=== PATIENT | male | born 1965 | race Caucasian/White ===

== ENCOUNTER 2021-04-06 16:26 | Outpatient (NON) | payer MEDICARE, SELFPAY ==
[2021-04-06 16:49] LABS: Hematocrit 36.4 % (40.0-54.0); Hemoglobin 11.2 g/dL (14.0-18.0); Mean Corpuscular HGB Conc 30.8 g/dL (32.0-36.0); Mean Corpuscular Hemoglobin 31.4 pg (27.0-31.0); Mean Platelet Volume 13.2 fl (8.7-11.0); Platelet Count Result 172 K/mm3 (150-420); Red Blood Count 3.57 M/mm3 (4.70-6.10); Red Cell Distribution Width 17.1 % (11.6-14.4)
[2021-04-06 17:01] LABS: Alanine Aminotransferase 30 U/L (16-63); Albumin Level 3.9 g/dL (3.4-5.0); Alkaline Phosphatase 123 U/L (46-116); Anion Gap 6 mmol/L (8-16); Aspartate Amino Transferase 24 U/L (15-37); Bilirubin,Total 0.3 mg/dL (0.00-1.00); Blood Urea Nitrogen 10 mg/dL (7-18); Carbon Dioxide 33 mmol/L (21-32); Chloride 103 mmol/L (98-108); Creatine Kinase 57 U/L (39-308); Estimated Glomerular Filt Rate 51; Glucose 72 mg/dL (70-99); Osmolality Calculated 292 mOsm/kg (285-295); Potassium 3.8 mmol/L (3.5-5.1); Sodium 142 mmol/L (136-145); Total Protein 7.6 g/dL (6.4-8.2)
[2021-04-06 17:02] LABS: White Blood Count 142.9 K/mm3 (4.8-10.8)
[2021-04-06 17:17] LABS: Band Neutrophils Percent 0 % (0-6); Eosinophils Absolute Manual 1.42 K/mm3 (0.02-0.5); Eosinophils Percent Manual 1 % (1-6); Lymphocytes Absolute Manual 105.74 K/mm3 (1.1-4.5); Lymphocytes Percent Manual 74 % (18-44); Monocytes Absolute Manual 18.57 K/mm3 (0.1-0.90); Monocytes Percent Manual 13 % (3-9); Neutrophils Absolute Manual 17.14 K/mm3 (1.3-6.7); Neutrophils Percent Manual 12 % (46-73); Platelet Estimate Adequate (Adequate); Total Cells Counted 100
[2021-04-06 17:23] LABS: Calcium 8.5 mg/dL (8.5-10.1)
[2021-04-06 17:29] LABS: CRP < 0.5 mg/dL (0.0-0.9)
== END 2021-04-06 16:27 | disposition home or self-care (01) ==
LOC: CHSLAB 16:29
PROVIDERS: Visit Provider Internal Medicine
DX: M86.172 Other acute osteomyelitis, left ankle and foot (principal)
CPT/HCPCS: 36415; 80053; 82550; 85025; 85060; 86140

== ENCOUNTER 2021-04-16 15:07 | Outpatient (NON) | payer MEDICARE, SELFPAY ==
[2021-04-16 16:17] LABS: Hematocrit 34.8 % (40.0-54.0); Hemoglobin 11.2 g/dL (14.0-18.0); Mean Corpuscular HGB Conc 32.2 g/dL (32.0-36.0); Mean Corpuscular Hemoglobin 31.6 pg (27.0-31.0); Mean Corpuscular Volume 98.3 fL (78.0-102.0); Mean Platelet Volume 13.1 fl (8.7-11.0); Platelet Count Result 176 K/mm3 (150-420); Red Blood Count 3.54 M/mm3 (4.70-6.10); Red Cell Distribution Width 17.7 % (11.6-14.4)
[2021-04-16 16:50] LABS: Alanine Aminotransferase 35 U/L (16-63); Albumin Level 3.6 g/dL (3.4-5.0); Alkaline Phosphatase 112 U/L (46-116); Anion Gap 8 mmol/L (8-16); Aspartate Amino Transferase 26 U/L (15-37); Bilirubin,Total 0.2 mg/dL (0.00-1.00); Blood Urea Nitrogen 16 mg/dL (7-18); CRP 1.7 mg/dL (0.0-0.9); Calcium 8.2 mg/dL (8.5-10.1); Carbon Dioxide 32 mmol/L (21-32); Chloride 98 mmol/L (98-108); Creatine Kinase 319 U/L (39-308); Estimated Glomerular Filt Rate 46; Glucose 78 mg/dL (70-99); Osmolality Calculated 286 mOsm/kg (285-295); Potassium 2.6 mmol/L (3.5-5.1); Sodium 138 mmol/L (136-145); Total Protein 6.4 g/dL (6.4-8.2)
[2021-04-16 17:10] LABS: White Blood Count 200.1 K/mm3 (4.8-10.8)
[2021-04-16 17:25] LABS: Atypical Lymphocytes Present; Band Neutrophils Percent 1 % (0-6); Basophils Percent Manual 0 % (0-1); Eosinophils Percent Manual 2 % (1-6); Lymphocytes Absolute Manual 182.09 K/mm3 (1.1-4.5); Lymphocytes Percent Manual 91 % (18-44); Monocytes Percent Manual 3 % (3-9); Neutrophils Percent Manual 3 % (46-73); Platelet Estimate Adequate (Adequate); Total Cells Counted 100
== END 2021-04-16 15:08 | disposition home or self-care (01) ==
PROVIDERS: PCP Internal Medicine
DX: R19.7 Diarrhea, unspecified (principal); M86.9 Osteomyelitis, unspecified
CPT/HCPCS: 36415; 80053; 82550; 85025; 85055; 86140; 87324

== ENCOUNTER 2021-04-20 15:10 | Outpatient (NON) | payer MEDICARE, SELFPAY ==
[2021-04-20 16:11] LABS: Hematocrit 32.4 % (40.0-54.0); Mean Corpuscular HGB Conc 30.9 g/dL (32.0-36.0); Mean Corpuscular Hemoglobin 31.7 pg (27.0-31.0); Mean Corpuscular Volume 102.9 fL (78.0-102.0); Mean Platelet Volume 12.4 fl (8.7-11.0); Platelet Count Result 211 K/mm3 (150-420); Red Blood Count 3.15 M/mm3 (4.70-6.10); Red Cell Distribution Width 18.1 % (11.6-14.4)
[2021-04-20 16:20] LABS: Alanine Aminotransferase 28 U/L (16-63); Albumin Level 3.5 g/dL (3.4-5.0); Alkaline Phosphatase 89 U/L (46-116); Anion Gap 7 mmol/L (8-16); Aspartate Amino Transferase 18 U/L (15-37); Bilirubin,Total 0.3 mg/dL (0.00-1.00); Blood Urea Nitrogen 5 mg/dL (7-18); CRP 0.7 mg/dL (0.0-0.9); Calcium 8.1 mg/dL (8.5-10.1); Carbon Dioxide 37 mmol/L (21-32); Chloride 97 mmol/L (98-108); Creatine Kinase 80 U/L (39-308); Estimated Glomerular Filt Rate > 60; Glucose 98 mg/dL (70-99); Osmolality Calculated 289 mOsm/kg (285-295); Potassium 2.9 mmol/L (3.5-5.1); Sodium 141 mmol/L (136-145); Total Protein 6.5 g/dL (6.4-8.2)
[2021-04-20 17:18] LABS: Atypical Lymphocytes Present; Band Neutrophils Percent 0 % (0-6); Basophils Percent Manual 0 % (0-1); Eosinophils Absolute Manual 4.14 K/mm3 (0.02-0.5); Eosinophils Percent Manual 2 % (1-6); Lymphocytes Absolute Manual 196.93 K/mm3 (1.1-4.5); Lymphocytes Percent Manual 95 % (18-44); Monocytes Absolute Manual 4.14 K/mm3 (0.1-0.90); Monocytes Percent Manual 2 % (3-9); Neutrophils Absolute Manual 2.07 K/mm3 (1.3-6.7); Neutrophils Percent Manual 1 % (46-73); Total Cells Counted 100; White Blood Count 207.3 K/mm3 (4.8-10.8)
[2021-04-20 17:51] LABS: Platelet Estimate Adequate (Adequate)
== END 2021-04-20 15:11 | disposition home or self-care (01) ==
LOC: CHSLAB 15:12
PROVIDERS: Visit Provider Internal Medicine
DX: M86.9 Osteomyelitis, unspecified (principal); Z79.2 Long term (current) use of antibiotics
CPT/HCPCS: 36415; 80053; 82550; 85025; 86140